=== PATIENT | female | born 1940 | race Caucasian/White ===

== ENCOUNTER 2021-05-28 15:59 | Outpatient (CLI) | payer MEDICARE, OTHER | END 2021-05-28 16:00 | disposition home or self-care (01) | LOC: COV 15:59 | PROVIDERS: ATTEND Family Medicine | DX: Z20.822 Contact with and (suspected) exposure to COVID-19 (principal) ==

== ENCOUNTER 2024-06-06 08:50 | Outpatient (CLI) | payer MEDICARE, OTHER | END 2024-06-06 23:59 | disposition critical access hospital (66) | LOC: EMS 08:50 | DX: R10.84 Generalized abdominal pain (principal); R11.2 Nausea with vomiting, unspecified; R19.7 Diarrhea, unspecified; R39.89 Other symptoms and signs involving the genitourinary system; K92.1 Melena; R42 Dizziness and giddiness; H53.8 Other visual disturbances | CPT/HCPCS: A0425; A0427 ==

== ENCOUNTER 2024-06-06 09:11 | Emergency (ER) | payer MEDICARE, OTHER ==
--- NOTE | 2024-06-06 09:18 | ED Physician Documentation ---
PD HPI [facility]AL [facility]URO - Stated complaint Stated Complaint: ABD PX - History obtained from History obtained from: Patient - Additional information Additional information: This is an 84-year-old woman on Plavix for history of stroke who felt "gassy" yesterday and then overnight developed spinning vertigo worse with supine position but not significantly worsened with head rotation, and upper abdominal discomfort, vomiting, diarrhea, and mild hematochezia. Prehospital was given Zofran. Had unremarkable EKG and blood sugar. PD PAST MEDICAL HISTORY - Present Medications Home Medications: Ambulatory Orders Medication Instructions Recorded Confirmed Clopidogrel [Plavix] 75 mg PO DAILY 11/14/22 11/19/23 Fluticasone [Flonase] 2 spray NS DAILY 11/14/22 11/19/23 Losartan [Cozaar] 50 mg PO BID 11/14/22 11/19/23 Pantoprazole [Protonix] 40 mg PO ONCE 11/14/22 11/19/23 - Allergies Allergies/Adverse Reactions: Allergies Allergy/AdvReac Type Severity Reaction Status Date / Time doxycycline AdvReac Nausea Verified 06/06/24 09:36 PD ED PE NORMAL - Vitals Vital signs reviewed: Yes - General General: Alert and oriented X 3, No acute distress - HEENT HEENT: PERRL, EOMI (No nystagmus) - Neck Neck: Supple, no meningeal sign, No bony TTP - Cardiac Cardiac: RRR, No murmur - Respiratory Respiratory: No respiratory distress, Clear bilaterally - Abdomen Abdomen: Non tender - Neuro Neuro: Alert and oriented X 3, therapeutic case manager 2-12 intact, No motor deficit, No sensory deficit, Other (Normal [id number] and [id number] testing) Eye Opening: Spontaneous Motor: Obeys Commands Verbal: Oriented GCS Score: 15 NIHSS - Time Time: 09:15 - Level of Consciousness Level of consciousness: (0) Alert, Keenly responsive LOC Questions: (0) Answers both Q's correct LOC Commands: (0) Performs both correctly - Gaze Best Gaze: (0) Normal - Visual Visual: (0) No loss - Facial Palsy Facial Palsy: (0) Normal, symmetrical movement - Motor Arms (both separate) Motor Arm (right): (0) No drift Motor Arm (left): (0) No drift - Motor Legs (both separate) Motor Leg (right): (0) No drift Motor Leg (left): (0) No drift - Limb Ataxia Limb Ataxia: (0) Absent - Sensory Sensory: (0) Normal - Best Language Best Language: (0) No aphasia - Dysarthria Dysarthria: (0) Normal - Extinction and Inattention (formally neg Extinction and inattention: (0) No abnormality - Total Score/Results Total Score/Result: 0 Results - Vitals Vitals: Vital Signs - 24 hr 06/06/24 09:23 Temperature 36.5 C Heart Rate 68 Respiratory 16 Rate Blood Pressure 178/90 H O2 Saturation 100 Oxygen O2 Source Room air - EKG (time done) 0926 EKG releavant findings:: EKG personally interpreted by author of this note. Relevant findings are: Rate: Rate (enter#) (54) Rhythm: NSR [place]: Normal Intervals: Normal NH, Prolonged QT QRS: Normal Ischemia: Normal ST segments - Labs Labs: Laboratory Tests 06/06/24 06/06/24 09:32 09:32 WBC 4.5 L RBC 3.80 L Hgb 12.0 Hct 37.2 MCV 97.9 MCH 31.6 H MCHC 32.3 RDW 12.7 Plt Count 214 MPV 9.5 Neut # (Auto) 2.7 Lymph # (Auto) 1.1 L [place] # (Auto) 0.4 Eos # (Auto) 0.3 Baso # (Auto) 0.0 Absolute Nucleated RBC 0.00 Nucleated RBC % 0.0 Sodium 140 Potassium 3.8 Chloride 105 Carbon Dioxide 30 Anion Gap 5.0 L BUN 15 Creatinine 0.7 Estimated GFR (MDRD) 79 L Glucose 129 H Calcium 8.8 Total Bilirubin 0.5 AST 47 H ALT 42 Alkaline Phosphatase 48 Troponin I High Sens 7.0 Total Protein 6.4 Albumin 3.8 Globulin 2.6 Albumin/Globulin Ratio 1.5 Lipase 59 - Rads (name of study) CT abdomen pelvis worrisome for gallstones, will order ultrasound. Also bladder mass, discussed with patient with recommendation for urology follow-u Relevant Findings:: Final report received, EMP independent interpretation of test MRI of the brain demonstrating mild acute on chronic left sphenoid sinusitis, age-related volume loss and patchy mastoid opacification Relevant Findings:: Final report received, EMP independent interpretation of test PD Medical Decision Making - ED course ED course: She presents with complaints of vertigo, upper abdominal discomfort, vomiting, diarrhea, and hematochezia. She has a history of stroke and with the vertigo she does not have obvious signs of a peripheral vertigo so we will obtain MRI of brain. From the perspective of the abdominal complaints, differential would include RI although prehospital EKG was unremarkable, or other intra-abdominal pathology and will obtain CT scanning, labs and troponin. Prior to discharge she felt much better without other specific intervention other than getting some oral meclizine. Sure abdominal exam remained benign. The MRI demonstrated possible sphenoid sinusitis which I will treat with amoxicillin given her acute vertigo and I had a long discussion with patient and about follow-up for the apparent bladder mass on CT with urologic follow-up recommended. Departure - Departure Disposition: 01 Home, Self Care Clinical Impression: Bladder mass, Vertigo Abdominal pain Qualifiers: Abdominal location: epigastric Qualified Code(s): R10.13 - Epigastric pain Condition: Stable Instructions: ED Abdominal Pain Female Non-Specific Abdominal Pain Comments: You are seen today for combination of vertigo, upper abdominal discomfort. Given the symptomatology we will worried about stroke, your MRI from that perspective was negative but does show acute on chronic sphenoid sinusitis which may be causing the vertigo for which I am putting on antibiotics. As far as the abdominal pain goes the CAT scan did demonstrate a bladder wall mass for which she will need to follow-up with urology but that would not be related to your current symptomatology. The ultrasound to follow-up on potential gallbladder wall thickening on your CT was negative. I am prescribing some nausea medications and something for stomach acid. Follow-up with your primary care physician with discussion of referral to urology as well for that bladder wall mass. Return for new or worsening symptoms. Paper prescriptions for amoxicillin 500 mg p.o. 3 times daily for a week, omeprazole 40 mg p.o. daily #30, and Zofran 4 mg p.o. every 6 hours as needed nausea #10 were written due to EMR downtime.
[2024-06-06] MEDS: MECLIZINE 12.5 MG TABLET PO STA (09:21)
[2024-06-06 09:38] VITALS: O2SAT 100
[2024-06-06 09:39] LABS: BASOPHILS % (AUTO) 0.7 %; EOSINOPHILS # (AUTO) 0.3 10^3/uL (0.0-0.7); EOSINOPHILS % (AUTO) 7.5 %; HCT - HEMATOCRIT 37.2 % (37.0-47.0); LYMPHOCYTES # (AUTO) 1.1 10^3/uL (1.5-3.5); LYMPHOCYTES % (AUTO) 24.8 %; MEAN CORPUSCULAR HEMOGLOBIN 31.6 pg (27.0-31.0); MEAN CORPUSCULAR HGB CONC 32.3 g/dL (32.0-36.0); MEAN CORPUSCULAR VOLUME 97.9 fL (81.0-99.0); MEAN PLATELET VOLUME 9.5 fL (7.9-10.8); MONOCYTES # (AUTO) 0.4 10^3/uL (0.0-1.0); MONOCYTES % (AUTO) 7.8 %; NEUTROPHILS # (AUTO) 2.7 10^3/uL (1.5-6.6); PLT - PLATELET COUNT 214 10^3/uL (130-450); RED CELL DISTRIBUTION WIDTH 12.7 % (12.0-15.0); WHITE BLOOD COUNT 4.5 x10^3/uL (4.8-10.8)
[2024-06-06 09:52] LABS: ALBUMIN 3.8 g/dL (3.2-5.5); ALBUMIN/GLOBULIN RATIO 1.5 (1.0-2.2); BILIRUBIN,TOTAL 0.5 mg/dL (0.2-1.0); CALCIUM 8.8 mg/dL (8.5-10.3); CREATININE 0.7 mg/dL (0.6-1.3); POTASSIUM 3.8 mmol/L (3.5-4.5); TOTAL PROTEIN 6.4 g/dL (6.4-8.9)
[2024-06-06] MEDS ORDERED: iohexoL-300 100 ML VIAL ONE (10:00)
--- NOTE | 2024-06-06 10:58 | CT Report ---
PROCEDURE: Abdomen/Pelvis W INDICATIONS: IV only, upper abd pain CONTRAST: Omni 300 100ml TECHNIQUE: After the administration of intravenous contrast, a CT scan of the abdomen and pelvis was performed. Images were recorded and evaluated at appropriate window settings. Reformats: coronal and sagittal. F or radiation dose reduction, the following was used: automated exposure control, adjustment of mA and /or kV according to patient size. COMPARISON: None. FINDINGS: Image quality: Diagnostic. Lower chest: Unremarkable. Liver: No solid mass. Gallbladder: Mild gallbladder wall thickening. No radiographic stones. Biliary tree: No intrahepatic or extrahepatic dilation, accounting for age. Spleen: No splenomegaly. Pancreas: No pancreatic ductal dilation. Adrenals: No adrenal nodule. Kidneys and ureters: No hydronephrosis. No renal cystic lesion which requires follow up. No solid mas s. Stomach, bowel and peritoneum: No gastric or small bowel dilation. No abnormal wall thickening. Trace amount of free fluid in pelvis. Diverticulosis without evidence of diverticulitis. Lymph nodes: No central or retroperitoneal adenopathy. Vessels: No infrarenal aortic aneurysm. Patent portal vein. PELVIS Reproductive organs: Unremarkable. Bladder: 1.3 x 1.0 cm right lateral bladder wall mass (series 2, image 106). No evidence of invasion beyond the wall. Pelvic lymph nodes: No pelvic adenopathy by size criteria. Bones: No aggressive osseous abnormality. Degenerative changes of the spine. Other: No significant ventral or inguinal hernia. IMPRESSION: Mild gallbladder wall thickening without radiographic stones. Consider right upper quadrant ultrasoun d to evaluate for acute cholecystitis. 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 Recommend urology referral. Reviewed by: Tha Carson MD on 06/06/2024 10:56 AM PDT Approved by: Tha Carson MD on 06/06/2024 10:56 AM PDT Station ID: [id number]
--- NOTE | 2024-06-06 12:55 | MRI Report ---
PROCEDURE: Brain WO INDICATIONS: vertigo, hx cva TECHNIQUE: Noncontrast axial T1 spin echo, axial T2 fast spin echo, sagittal and axial FLAIR, coronal T2 fast sp in echo, axial gradient echo, axial diffusion and ADC through the brain. COMPARISON: None. FINDINGS: Image quality: Excellent. CSF Spaces: Basal cisterns are patent. No extra-axial fluid collections. Ventricles are normal in size and shape. Brain: No intracranial masses or hemorrhage. Lizama/white matter interface is normal. Brainstem appe ars normal. Diffusion-weighted images demonstrate no acute ischemic insult. No chronic ischemic ins ults. Normal intravascular flow voids are present. There is age-related volume loss and moderate pe riventricular white matter change consistent with small vessel ischemic change. Skull and face: Calvarium has normal marrow signal. Orbits appear normal. Sinuses: Left sphenoid sinus mucosal thickening and small air-fluid level. Patchy bilateral mastoid o pacification, right greater than left, of uncertain clinical significance. IMPRESSION: 1. Mild acute on chronic left sphenoid sinusitis. 2. No acute intracranial process. 3. Age-related volume loss and moderate small vessel ischemic change. 4. Patchy bilateral mastoid opacification, right greater than left, of uncertain clinical significanc e. Mastoid opacification is usually asymptomatic and incidental. Recommend correlation for presence o r absence of symptoms. Reviewed by: Cullen Solano MD on 06/06/2024 12:53 PM PDT Approved by: Cullen Solano MD on 06/06/2024 12:53 PM PDT Station ID: [id number]
[2024-06-06 15:20] VITALS: BP 132/86
--- NOTE | 2024-06-06 15:20 | Ultrasound Report ---
PROCEDURE: Abdomen Limited INDICATIONS: RUQ abd. pain TECHNIQUE: Real-time focused scanning was performed of the abdomen, with image documentation. COMPARISONS: Same day CT FINDINGS: Liver: Liver is normal in size and homogeneous in echotexture. Gallbladder: No gallstones. Mild wall thickening. Negative sonographic Garcia's sign. Biliary ducts: Intrahepatic bile ducts are non-dilated. Extrahepatic bile duct caliber measures 3 m m. Normal is 6-7 mm or less in diameter, or 10 mm or less post-cholecystectomy. Pancreas: Visualized portions of the pancreas are sonographically normal. Right kidney: Normal in size and echotexture. Right kidney measures 7.8 cm long. No hydronephrosis o r nephrolithiasis. No solid masses. No complex renal cystic lesions which require follow-up. IVC: Intrahepatic inferior vena cava is patent. Miscellaneous: No free abdominal fluid. IMPRESSION: Mild gallbladder wall thickening without stones or positive sonographic Garcia sign. Wall thickening could be related to liver disease or heart disease, less likely pancreatitis. Reviewed by: Tha Carson MD on 06/06/2024 3:18 PM PDT Approved by: Tha Carson MD on 06/06/2024 3:18 PM PDT Station ID: [id number]
[2024-06-06 15:55] LABS: BILIRUBIN,URINE NEGATIVE (NEGATIVE); CLARITY,URINE CLEAR (CLEAR); GLUCOSE, URINE (UA) NEGATIVE (NEGATIVE); KETONES,URINE (UA) NEGATIVE (NEGATIVE); LEUKOCYTE ESTERASE, URINE NEGATIVE (NEGATIVE); NITRITE,URINE NEGATIVE (NEGATIVE); OCCULT BLOOD,URINE NEGATIVE (NEGATIVE); PROTEIN,URINE NEGATIVE (NEGATIVE); UROBILINOGEN,URINE 0.2 (NORMAL) E.U./dL (NORMAL)
[2024-06-06] MEDS: iohexoL-300 100 ML VIAL IVP ONE (17:25)
== END 2024-06-06 13:45 | disposition home or self-care (01) ==
LOC: EDUNIT# → ED 09:11
DX: R10.13 Epigastric pain (principal); R42 Dizziness and giddiness; N32.89 Other specified disorders of bladder; Z86.73 Personal history of transient ischemic attack (TIA), and cerebral infarction without residual deficits; Z79.02 Long term (current) use of antithrombotics/antiplatelets
CPT/HCPCS: 36415; 70551; 74177; 76705; 80053; 81003; 83690; 84484; 85025; 93005; 99284; A9270; Q9967; 81001; 87086